=== PATIENT | female | born 1990 | race African-American/Black ===

== ENCOUNTER 2016-11-05 13:33 | Emergency (ER) | payer OTHER ==
[~2016-11-05] VITALS: Ht 160 cm; Wt 62.6 kg
--- NOTE | ~2016-11-05 | US61 ---
[facility] A Service of [facility] & [facility] RADIOLOGY TEXT RESULTS PATIENT: YUMI WHITNEY LOCATION: [facility] : [birth year] UNIT #: [id number] AGE: [address]: Jordyn Munosn SEX: F ORDER DR: [id number] [facility] [address] [place], [place] [address] [id number] MR#: [id number] Acc #: [id number] NAME: YUMI WHITNEY : 1990 SEX: F STUDY DATE/TIME: 11/05/2016 16:40 UNIT: ELIDA ROOM: STUDY DESCRIPTION: US /Mat <14Wk / Attending Physician: Jordyn Munson P.A.-C. Ordering Physician: Jordyn Munson P.A.-C. Primary Care Physician: No Primary Care Physician MEDICAL IMAGING REPORT This report is preliminary unless electronic signature is present EXAM /maternal ultrasound of less than 14 weeks gestation. COMPARISON February 04, 2012. INDICATION 26-year-old female currently with pelvic pain for 3 days. Beta hCG of 56,543,000 international units/mL. FINDINGS There is a simple cyst in the left ovary measuring 2.5 x 2.5 cm x 2.2 cm. This may reflect a corpus luteum cyst. Left ovary measures 3.9 cm x 3.9 cm x 3.5 cm. Color and Doppler flow is present in the left ovary. Uterus measures 7.2 cm x 5.3 cm x 5.1 cm. There is a single living intrauterine with a heart rate of 199 beats per minute. [place]-rump length averages 0.48 cm consistent 6 weeks 1 day gestation plus or minus 4 days. There is normal intrauterine perigestational reaction. No evidence of perigestational hemorrhage. Right ovary measures 2.1 cm x 1.1 cm x 2.3 cm and contains multiple normal internal follicles. There is color and Doppler flow within the right ovary. In the left ovary, there is a second simple cyst. There is actually a tiny hypoechoic sliver adjacent to the perigestational reaction, perhaps reflecting a very small perigestational hemorrhage. IMPRESSION 1. Single living intrauterine with heart rate of 199 beats per minute and an estimated gestational age of 6 weeks 1 day plus or minus 4 days. 2. Trace anechoic fluid collection adjacent to the yolk sac and perigestational reaction, possibly reflecting a very small perigestational hemorrhage. Close clinical and imaging followup recommended. Obstetric consultation is recommended as an outpatient. [facility] A Service of [facility] RADIOLOGY TEXT RESULTS PATIENT: YUMI WHITNEY LOCATION: [facility] : [birth year] UNIT #: [id number] AGE: [address]: Jordyn Munson SEX: F ORDER DR: 3. Two large cysts within the left ovary, one of which likely reflects a corpus luteum cyst. There are multiple normal follicles in the right ovary. No evidence of ovarian torsion. Dictated by... Bal Lee M.D. THIS IS AN ELECTRONICALLY VERIFIED REPORT Bal Lee M.D. at 11/12/2016 8:18 PM RONNIE/dominic TD: 11/05/2016 21:07 JOB #: [id number] MEDICAL IMAGING REPORT Page 1 of 1 COPY
[~2016-11-05 13:33] MED LIST: CIPRO PO; NAPROSYN500 MG PO; TAMIFLU75 M1 PO; ZOFRAN ODT4 MG PO
[2016-11-05 14:42] LABS: URINE SOURCE CLEAN CATCH
[2016-11-05 14:52] LABS: URINE APPEARANCE CLEAR; URINE BILIRUBIN NEG (NEG); URINE BLOOD NEG (NEG); URINE COLOR YELLOW; URINE GLUCOSE NEG (NEG); URINE KETONE NEG (NEG); URINE LEUKOCYTE ESTERASE NEG (NEG); URINE NITRATE NEG (NEG); URINE PROTEIN NEG (NEG); URINE SPECIFIC GRAVITY 1.027 (1.003-1.035)
[2016-11-05 15:00] LABS: CULTURE INDICATED? NO
[2016-11-05 15:24] LABS: BASOPHIL% 0.4 % (0-2.5); EOSINOPHIL# 0.1 X10e3 (0-0.7); EOSINOPHIL% 0.6 % (0.0-7.0); HEMATOCRIT 42.2 % (35.0-45.0); HEMOGLOBIN 14.2 gm/dL (12.0-16.0); LYMPHOCYTE# 1.9 X10e3 (1.0-3.5); LYMPHOCYTE% 21.2 % (17.0-45.0); MEAN CELL VOLUME 89.7 FL (83-96); MEAN CORPUSCULAR HEMOGLOBIN 30.2 PG (28-34); MEAN CORPUSCULAR HGB CONC 33.7 g/dL (30-36); MEAN PLATELET VOLUME 6.8 FL (6.5-11.5); MONOCYTE# 0.6 X10e3 (0-1.0); MONOCYTE% 7.2 % (3.0-12.0); NEUTROPHIL# 6.2 X10e3 (1.5-7.1); NEUTROPHIL% 70.6 % (40-75); PLATELET COUNT 245 X10e3 (140-420); RED CELL DISTRIBUTION WIDTH 13.9 % (11.0-15.5); WHITE BLOOD COUNT 8.8 X10e3 (4.0-10.5)
[2016-11-05 15:25] LABS: DIFF IND NO
[2016-11-05 15:47] LABS: CALCIUM SERUM 9.7 mg/dL (8.4-10.2); CREATININE SERUM 0.5 mg/dL (0.6-1.4); GLOM FILT RATE Estimated 154.8 mL/min (>60); POTASSIUM 3.7 mmol/L (3.5-5.1)
[2016-11-08 21:28] LABS: CHLAMYDIA TRACH Not Detected (Not Detected); N GONOR Not Detected (Not Detected)
== END 2016-11-05 18:11 | disposition home or self-care (01) ==
LOC: CED 13:33
PROVIDERS: Physician Assistant
DX: O99.89 Other specified diseases and conditions complicating pregnancy, childbirth and the puerperium (principal); R10.9 Unspecified abdominal pain; R11.0 Nausea; O21.9 Vomiting of pregnancy, unspecified
CPT/HCPCS: 76801; 80048; 81003; 84702; 84703; 85025; 87491; 87591; 87808; 87905; 99284